=== PATIENT | male | born 1995 | race Caucasian/White ===

== ENCOUNTER 2018-11-30 21:18 | Emergency (ER) | payer OTHER ==
[~2018-11-30] VITALS: Ht 170.2 cm; Wt 76.2 kg
[2018-11-30 21:24] VITALS: BP 148/68
--- NOTE | 2018-11-30 21:26 | NUR ---
PT AMB W/O ASST TO ER BED 7
--- NOTE | 2018-11-30 21:31 | NUR ---
PT TO ED WITH C/O BILATERAL EAR PAIN X 1WEEK. PT DENIES DISCHARGE OR DRAINAGE FROM EARS. NO OBVIOUS TRAUMA OR DEFORMITY NOTED. NO S/S OF HEARING LOSS. PT PLACED INTO BED, PEDNDING MD RACHEL. PMH--HTN
--- NOTE | 2018-11-30 21:53 | NUR ---
Patient discharged with v/s stable. Written and verbal after care instructions given and explained. Patient alert, oriented and verbalized understanding of instructions. Ambulatory with steady gait. All questions addressed prior to discharge. ID band removed. Patient advised to follow up with PMD. Rx of Promethazine Hydrochloride/Dextromethorphan Hydrobromide, and Motrin given. Patient educated on indication of medication including possible reaction and side effects. Opportunity to ask questions provided and answered.
[2018-11-30 21:55] VITALS: BP 148/68
== END 2018-11-30 21:53 | disposition home or self-care (01) ==
LOC: MED 21:18
DX: J06.9 Acute upper respiratory infection, unspecified (principal); H92.03 Otalgia, bilateral; I10 Essential (primary) hypertension
CPT/HCPCS: 99283

== ENCOUNTER 2018-12-20 02:03 | Emergency (ER) | payer OTHER ==
[~2018-12-20] VITALS: Ht 176.5 cm; Wt 75.9 kg
--- NOTE | 2018-12-20 02:06 | NUR ---
AMBULATORY TO ED 04 WITH STEADY GAIT
[2018-12-20 02:07] VITALS: BP 148/109
--- NOTE | 2018-12-20 02:26 | NUR ---
PT PRESENTS TO ED WITH C/O CP, SOB, AND ANXIETY X 1 HR. LUNG SOUNDS CLEAR TO ASCULTATION. NO APPARENT S/S OF DISTRESS NOTED. EKG PERFORMED AT BEDSIDE. ER MD WRIGHT. PT PLACED INTO BED, PENDING MD RACHEL. PMH--HTN
[2018-12-20] MEDS ORDERED: LORazepam 2 MG/ML VIAL IM ONE (02:35)
[2018-12-20] MEDS ORDERED: ONDANSETRON 4 MG ODT PO ONE (02:40)
[2018-12-20 03:20] VITALS: BP 149/99
== END 2018-12-20 03:19 | disposition home or self-care (01) ==
LOC: MED 02:03
DX: R06.02 Shortness of breath (principal); R07.9 Chest pain, unspecified; F41.9 Anxiety disorder, unspecified; I10 Essential (primary) hypertension; Z90.49 Acquired absence of other specified parts of digestive tract
CPT/HCPCS: 71045; 93005; 96372; 99283; J2060; Q0092; Q0162